=== PATIENT | female | born 1965 | race Caucasian/White ===

== ENCOUNTER 2023-02-20 06:23 | Day surgery (SDC) | payer OTHER ==
[~2023-02-20 06:23] MED LIST: FLONASE16 GM; LEVOTHYROXINE25 MCG PO; PLETAL PO; TOPROL XL25 M1 PO
== END 2023-02-20 12:55 | disposition home or self-care (01) ==
LOC: CIR.AMB 06:23
PROVIDERS: ATTEND Otolaryngology Otology & Neurotology
DX: H91.92 Unspecified hearing loss, left ear (principal); H66.92 Otitis media, unspecified, left ear; Z20.822 Contact with and (suspected) exposure to COVID-19; D68.9 Coagulation defect, unspecified; I10 Essential (primary) hypertension; R73.03 Prediabetes; E03.9 Hypothyroidism, unspecified

== ENCOUNTER → 2023-02-20 13:22 | Outpatient (CLI) | payer OTHER | END | disposition home or self-care (01) | LOC: LAB 13:22 | PROVIDERS: ATTEND Anesthesiology | DX: E87.5 Hyperkalemia (principal) ==